=== PATIENT | female | born 2000 | race Caucasian/White ===

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

== ENCOUNTER → 2022-12-20 | Outpatient (CLI) | payer OTHER, SELFPAY ==
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
== END | disposition home or self-care (01) ==
PROVIDERS: PCP Nurse Practitioner Family; Referring Provider Physician Assistant Surgical; Visit Provider Physician Assistant Surgical
DX: S67.193A Crushing injury of left middle finger, initial encounter (principal)
CPT/HCPCS: 73140

== ENCOUNTER → 2023-01-10 | Outpatient (CLI) | payer OTHER, SELFPAY ==
--- NOTE | 2023-01-10 09:28 | RAD_ITS ---
STUDY: X-RAY - LEFT HAND, ATTENTION THIRD FINGER REASON FOR EXAM: Female, 22 years old. f/u TECHNIQUE: 3 view(s) of the finger were obtained. COMPARISON: Comparison is made with prior study December 20, 2022. FINDINGS: Normal metacarpal head. Normal metacarpophalangeal joint. Normal proximal phalanx. Normal middle phalanx. Normal distal phalanx. Normal proximal interphalangeal joint. Normal distal interphalangeal joint. RAD/Finger(s) Min 2 Views IMPRESSION: Fracture is healed. Electronically Signed: Jeramie Thompson MD at 10:01 EDT ,
== END | disposition home or self-care (01) ==
PROVIDERS: PCP Nurse Practitioner Family; Referring Provider Physician Assistant Surgical; Visit Provider Physician Assistant Surgical
DX: S62.633A Displaced fracture of distal phalanx of left middle finger, initial encounter for closed fracture (principal)
CPT/HCPCS: 73140

== ENCOUNTER 2024-02-10 00:14 | Emergency (ER) | payer OTHER, SELFPAY ==
[2024-02-10 00:15] VITALS: BP 110/74; PULSE 101; RESP 18; TEMP 36.8; O2SAT 94; BMI 40.2
[2024-02-10 00:17] VITALS: BP 110/74; PULSE 103; RESP 18; TEMP 36.8; O2SAT 95
[2024-02-10] MEDS: Ondansetron ODT 4 MG Tablet 8 MG PO (00:47)
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
[2024-02-10 02:14] VITALS: BP 99/63; PULSE 63; RESP 16; O2SAT 94
[2024-02-10 02:26] LABS: Amphetamine Urine VISTA NEGATIVE (<1000 ng/mL); Barbiturate Urine VISTA NEGATIVE (< 200 ng/mL); Benzodiazepine Urine VISTA NEGATIVE (< 200 ng/mL); Cocaine Urine VISTA NEGATIVE (< 300 ng/mL); Ecstacy Urine VISTA NEGATIVE (< 500 ng/mL); Methadone Urine VISTA NEGATIVE (< 300 ng/mL); PCP Urine VISTA NEGATIVE (< 25 ng/mL); THC Urine VISTA POSITIVE (< 50 ng/mL); Vista UDS pH Range 6
[2024-02-10 02:36] VITALS: BP 102/64; PULSE 63; RESP 16; TEMP 36.8; O2SAT 94
== END 2024-02-10 02:46 | disposition home or self-care (01) ==
LOC: ED 02:45
PROVIDERS: Emergency Provider Emergency Medicine; PCP Nurse Practitioner Family; Visit Provider Emergency Medicine
DX: F10.129 Alcohol abuse with intoxication, unspecified (principal); T40.711A Poisoning by cannabis, accidental (unintentional), initial encounter; Z79.899 Other long term (current) drug therapy
CPT/HCPCS: 80307; 82077; 99282

== ENCOUNTER 2024-07-11 06:00 | Emergency (ER) | payer OTHER, SELFPAY ==
[2024-07-11 06:03] VITALS: BP 128/74; PULSE 97; RESP 20; TEMP 37.2; O2SAT 96; BMI 37.8
[2024-07-11] MEDS: 0.9% Normal Saline (1000mL) 1,000 ML 1000 ML IV (07:00)
[2024-07-11] MEDS: Albuterol 2.5 MG/3 ML VIAL.NEB. 5 MG INHALATION (07:14)
[2024-07-11] MEDS: Ipratropium/Albuterol Sulfate 3 ML AMPUL.NEB INHALATION (07:14)
[2024-07-11 07:16] VITALS: PULSE 95; RESP 20
[2024-07-11 07:23] LABS: Absolute Lymphocyte Count 1.45 X10^3/uL (0.83-4.51); Absolute Neutrophil Count 6.9 X10^3/uL (2.0-7.7); Basophil# 0.04 X10^3/uL; Basophil% 0.4 % (0-1); Eosinophil# 0.05 X10^3/uL; Eosinophils% 0.5 % (0-5); Hematocrit 42.7 % (37-47); Hemoglobin 14.5 g/dL (12.0-15.0); Lymphocyte # 1.45 X10^3/ul (0.83-4.51); Mean Corpuscular Hgb 28.9 pg (27.0-32.0); Mean Corpuscular Volume 85.2 fL (81-99); Mean Platelet Vol. 8.8 fl (6.2-12.0); Monocyte# 1.22 X10^3/uL; Monocyte% 12.6 % (0-10); NRBC Flagged by Analyzer 0 % (0-5); Neutrophil # 6.87 X10^3/uL (2.7-7.7); Neutrophil % 71.1 % (47-70); Platelet Count 315 K/mm3 (150-450); RBC Distribution Width CV 14.1 % (11.6-14.6); RBC Distribution Width SD 43.5 fl (35.1-43.9); Red Blood Count 5.01 M/mm3 (4.2-5.4); White Blood Count 9.7 K/mm3 (4.4-11.0)
[2024-07-11] MEDS: MethylPREDNISolone 125 MG/2 ML Vial IV (07:24)
--- NOTE | 2024-07-11 07:42 | ED.VIS.DYS ---
HPI History of Present Illness Chief Complaint: Cold Sx Narrative Narrative: Chief complaint and HPI: Cold symptoms. 24-year-old female with past medical history of asthma presents for evaluation of cold symptoms. Patient states that she has been intermittently sick for the past month. She was seen in urgent care and placed on cough suppressant and prednisone. She states her symptoms improve but then worsened again. She endorses headache, sinus pressure, congestion, chest tightness, cough. She denies any fever, chills, neck pain, chest pain, shortness of breath, abdominal pain, nausea, vomiting. Has been using her albuterol inhaler. Review of systems: See HPI Medications: As listed on the chart Allergies: As listed on the chart PFSH: Per chart Vital signs: As listed on the chart. Reviewed. Physical exam: Gen: A&O x3, NAD Head: Normocephalic, atraumatic Eyes: No sclera icterus, conjunctiva clear, PERRL, EOMI ENT: TMs clear BL, moist mucous membranes, posterior oropharynx unremarkable, uvula midline, tonsils not enlarged, no tonsillar exudates, + sinus tenderness, + congestion Neck: Trachea midline, No JVD, Full ROM, No meningismus CV: RRR, no murmurs, no peripheral edema Resp: Lungs CTA BL but expiratory wheezes, no w/r/c GI: Abd soft, non-distended, non-tender, no r/r/g Musc: Full ROM, no deformity Skin: Warm, dry, no rash Neuro: Alert, oriented, grossly intact, sensation intact Psych: Cooperative, appropriate mood and affect [facility] Medical History (Updated 07/11/24 @ 08:[address] Jasper Tello, ) Marijuana smoker Medical History no medical history Home Medications ?Medication ?Instructions ?Recorded ?Last Taken ?Type duloxetine 30 mg capsule,delayed 30 mg PO DAILY 02/10/24 Unknown History release albuterol sulfate 90 mcg/actuation 2 puff inhalation Q4H PRN PRN 07/11/24 Unknown History aerosol inhaler shortness of breath or wheezing amoxicillin 875 mg-potassium 1 tab PO BID 10 days #20 tabs 07/11/24 Unknown Rx clavulanate 125 mg tablet prednisone 20 mg tablet 40 mg (2 x 20 mg) PO DAILY 5 days 07/11/24 Unknown Rx #10 tabs Allergy/AdvReac Type Severity Reaction Status Date / Time No Known Allergies Allergy Verified 07/11/24 06:01 Family History no significant family his Social History Smoking Status: Current some day smoker tobacco type: e-cigarettes EXAM Physical Exam Const Vital Signs: 07/11/24 06:03 07/11/24 06:06 07/11/24 07:16 Temperature 98.9 F Temperature Source Oral Pulse Rate 97 95 Respiratory Rate 20 H 20 H Respiratory Effort Normal Non-Labored Respiratory Pattern Normal Tachypnea Blood Pressure 128/74 H Blood Pressure Mean 92 Pulse Ox 96 Oxygen Delivery Method Room Air MDM MDM MDM Narrative Medical decision making narrative: 24-year-old female with past medical history of asthma presents for evaluation of cold symptoms. Symptoms have been ongoing intermittently for a month. On physical exam she has sinus tenderness as well as expiratory wheezing. Differential diagnosis includes but is not limited to sinusitis, asthma exacerbation, COVID, influenza, viral illness, pneumonia. NS bolus, Solu-Medrol, breathing treatments ordered for symptoms. Respiratory workup ordered. CBC without leukocytosis or anemia. BMP unremarkable. Patient positive for influenza A. Chest x-ray was personally reviewed and interpreted by me, ED physician. No pneumonia, effusion, cardiomegaly, pneumothorax. On reevaluation, patient's wheezing has improved. Patient is stable to discharge home. She was updated of all her results. Despite her being positive for influenza given her month-long congestion with sinus tenderness will treat with Augmentin x 10 days for sinusitis. Will be placed on prednisone for mild asthma exacerbation. Follow-up with PCP. Return precautions explained. She agreed and understand the plan. Impression: 1. Influenza A 2. Sinusitis 3. Mild asthma exacerbation secondary to #1 Lab Data Labs: Laboratory Results - last 24 hr 07/11/24 07:15 WBC 9.7 RBC 5.01 Hgb 14.5 Hct 42.7 MCV 85.2 MCH 28.9 MCHC 34.0 RDW Std Deviation 43.5 RDW Coeff of Ryan 14.1 Plt Count 315 MPV 8.8 Immature Gran % (Auto) 0.400 Neut % (Auto) 71.1 H Lymph % (Auto) 15.0 L [place] % (Auto) 12.6 H Eos % (Auto) 0.5 Baso % (Auto) 0.4 Absolute Neuts (auto) 6.9 Absolute Lymphs (auto) 1.45 Nucleated RBC % 0 Sodium 135 Potassium 3.6 Chloride 101 Carbon Dioxide 21.6 Anion Gap 13 BUN 13 Creatinine 0.90 Estim Creat Clear Calc 128.03 Est GFR (MDRD) Non-Af 93 BUN/Creatinine Ratio 14.6 Glucose 101 H Calcium 9.0 Discharge Plan Triage Chief Complaint: Cold Sx ED Provider: Jasper Tello Dx/Rx/DC Orders Clinical Impression: Influenza A, Sinusitis, Asthma exacerbation Instructions: ED Asthma, Acute (Adult), ED Influenza (Adult), ED Sinusitis (Not Bacterial) Prescriptions: New prednisone 20 mg tablet 40 mg PO DAILY 5 Days Qty: 10 0RF amoxicillin-pot clavulanate 875-125 mg tablet 1 tab PO BID 10 Days Qty: 20 0RF No Action duloxetine 30 mg capsule,delayed release(DR/EC) 30 mg PO DAILY albuterol sulfate 90 mcg/actuation HFA aerosol inhaler 2 puff inhalation Q4H PRN PRN (Reason: shortness of breath or wheezing) Primary Care Provider: Azalea Chinchilla Referrals: Azalea Chinchilla, [employer] [Primary Care Provider] - 3-5 Days Activity Restrictions/Additional Instructions: Follow-up with your primary care physician. Return back to ED if symptoms change or worsen. Albuterol inhaler as needed for wheezing. Start prednisone tomorrow as you already received your dose today. Print Language: Vietnamese Disposition Disposition: Home, Self Care
[2024-07-11 07:47] LABS: Anion Gap 13 (5-15); BUN 13 mg/dL (4-19); BUN/Creat Ratio 14.6 RATIO (10-20); Carbon Dioxide 21.6 mmol/L (21.0-32.0); Chloride 101 mmol/L (98-108); EST Glomerular Filtration Rate 93 (>60); Estimated Creatinine Clearance 128.03 ml/min (50-250); Glucose 101 mg/dL (70-99); Potassium 3.6 mmol/L (3.3-5.1); Sodium Level 135 mmol/L (133-145)
--- NOTE | 2024-07-11 07:55 | RAD_ITS ---
EXAM: CHEST PA AND LATERAL CLINICAL HISTORY: COUGH COMPARISON: None. TECHNIQUE: PA and lateral views of the chest obtained. FINDINGS: The cardiac silhouette is not enlarged. Mild right hemidiaphragm elevation/eventration is noted. No pulmonary parenchymal consolidative opacities. No pneumothorax or significant pleural effusion. No acute osseous abnormality is identified. RAD/Chest PA and Lateral IMPRESSION: No radiographic evidence of acute cardiopulmonary disease. Reading Location: [id number]
[2024-07-11 08:50] VITALS: BP 135/65; PULSE 95; RESP 20; TEMP 37.2; O2SAT 93
== END 2024-07-11 08:53 | disposition home or self-care (01) ==
PROVIDERS: Emergency Provider Surgery; PCP Nurse Practitioner Family; Visit Provider Surgery
DX: J10.1 Influenza due to other identified influenza virus with other respiratory manifestations (principal); J45.901 Unspecified asthma with (acute) exacerbation; F17.290 Nicotine dependence, other tobacco product, uncomplicated; J32.9 Chronic sinusitis, unspecified; Z79.51 Long term (current) use of inhaled steroids; Z79.899 Other long term (current) drug therapy
CPT/HCPCS: 71046; 80048; 85025; 87631; 94640; 96374; 99284; A4216